=== PATIENT | male | born 1985 | race Caucasian/White ===

== ENCOUNTER 2019-10-11 19:37 | Emergency (ER) | payer OTHER ==
[~2019-10-11] VITALS: Ht 185.4 cm; Wt 102.1 kg
== END 2019-10-11 22:00 | disposition home or self-care (01) ==
LOC: ED 19:37
DX: S90.31XA Contusion of right foot, initial encounter (principal); S97.81XA Crushing injury of right foot, initial encounter; W55.12XA Struck by horse, initial encounter; Y93.89 Activity, other specified; Y92.89 Other specified places as the place of occurrence of the external cause; Y99.8 Other external cause status

== ENCOUNTER → 2020-09-08 | Outpatient (CLI) | payer OTHER | END | disposition home or self-care (01) | LOC: RAD 15:43 | PROVIDERS: ATTEND Physician Assistant | DX: R05 Cough (principal) ==

== ENCOUNTER 2023-04-01 18:21 | Emergency (ER) | payer OTHER ==
[~2023-04-01] VITALS: Ht 185.4 cm; Wt 106.6 kg
== END 2023-04-01 19:51 | disposition home or self-care (01) ==
LOC: ED 18:21
DX: S53.401A Unspecified sprain of right elbow, initial encounter (principal); F17.210 Nicotine dependence, cigarettes, uncomplicated; X50.0XXA Overexertion from strenuous movement or load, initial encounter; Y93.89 Activity, other specified; Y92.89 Other specified places as the place of occurrence of the external cause; Y99.8 Other external cause status